=== PATIENT | female | born 1965 | race Caucasian/White ===

== ENCOUNTER 2017-04-21 17:24 | Emergency (ER) | payer MEDICAID, OTHER ==
[~2017-04-21] VITALS: Wt 96.0 kg
--- NOTE | 2017-04-21 18:20 | ERD ---
ER Documentation Chief Complaint Date/Time DATE: 04/21/17 TIME: 18:19 Chief Complaint PT HERE FOR DIALYSIS CATH REMOVAL PER PMD, SEE ATTACHED HPI Patient is a 51-year-old female with dialysis who presents for permacath removal. The patient was sent by her gun striper Dr. Wood to have her permacath removed as she currently has a left upper extremity fistula which is now ready for use for dialysis. She no longer requires the permacath. She has no other complaints. ROS All systems reviewed and are negative except as per history of present illness. PMhx/Soc History of Surgery: Yes (L AV fistula) Anesthesia Reaction: No Hx Neurological Disorder: No Hx Respiratory Disorders: No Hx Cardiac Disorders: No Hx Psychiatric Problems: No Hx Miscellaneous Medical Probl: Yes (HTN, DM, anemia, cholesterol.) Hx Alcohol Use: No Hx Substance Use: No Hx Tobacco Use: No Smoking Status: Never smoker FmHx Family History: No diabetes Physical Exam Vitals Vital Signs Date Time Temp Pulse Resp B/P Pulse Ox O2 Delivery O2 Flow Rate FiO2 04/21/17 17:28 97.9 74 17 159/68 98 Physical Exam Const: No acute distress Head: Atraumatic Eyes: Normal Conjunctiva ENT: Normal External Ears, Nose and Mouth. Neck: Full range of motion..~ No meningismus. Resp: Clear to auscultation bilaterally Cardio: Regular rate and rhythm, no murmurs Abd: Soft, non tender, non distended. Normal bowel sounds Skin: Permacath in the right chest wall, dialysis fistula to the left upper extremity Back: No midline or flank tenderness Ext: No cyanosis, or edema Neur: Awake and alert Psych: Normal Mood and Affect Procedures/MDM Patient is a 51-year-old female presents for permacath removal. The patient unfortunately has come after 5 PM and interventional radiology is no longer here to remove the permacath. I do not remove permacath in the emergency department. The patient will need to return tomorrow morning for permacath removal with interventional radiology. The patient can return for any worsening symptoms. There is no sign of infection at this time. Departure Diagnosis: Primary Impression: Intravenous catheter in place Condition: Fair Patient Instructions: IV Catheter Site Care Referrals: MAXIMINO WOOD MD Additional Instructions: Return tomorrow for Permacath removal by Interventional radiology. MONSE QUIJANO MD Apr 21, 2017 18:20
== END 2017-04-21 18:31 | disposition left against medical advice (07) ==
LOC: E/R 17:24
DX: Z45.2 Encounter for adjustment and management of vascular access device (principal); I10 Essential (primary) hypertension; E11.9 Type 2 diabetes mellitus without complications
CPT/HCPCS: 99282

== ENCOUNTER 2017-04-22 08:35 | Emergency (ER) | payer MEDICAID ==
[~2017-04-22] VITALS: Ht 162.6 cm; Wt 96.5 kg
[2017-04-22 08:40] VITALS: Ht 162.6 cm; Wt 96.5 kg
--- NOTE | 2017-04-22 09:32 | ERD ---
ER Documentation Chief Complaint Date/Time DATE: 04/22/17 TIME: 09:30 Chief Complaint Patient here for a patel catheter removal HPI Patient is here for dialysis catheter removal. The patient was seen yesterday and came to the ER by interventional radiology had already went home. Patient had full dialysis yesterday without complications. Patient has a functioning left upper extremity AV shunt in place it is working and is sent for removal of right subclavian Ed ROS All systems reviewed and are negative except as per history of present illness. Allergies Allergies: Coded Allergies: No Known Allergy (Unverified , 04/22/17) PMhx/Soc History of Surgery: Yes (L AV fistula) Anesthesia Reaction: No Hx Neurological Disorder: No Hx Respiratory Disorders: No Hx Cardiac Disorders: No Hx Psychiatric Problems: No Hx Miscellaneous Medical Probl: Yes (HTN, DM, anemia, cholesterol.) Hx Alcohol Use: No Hx Substance Use: No Hx Tobacco Use: No Smoking Status: Never smoker FmHx Family History: No coronary disease Physical Exam Vitals Vital Signs Date Time Temp Pulse Resp B/P Pulse Ox O2 Delivery O2 Flow Rate FiO2 04/22/17 08:40 98.4 67 20 153/65 96 Physical Exam Const: [] Head: Atraumatic normocephalic Eyes: Normal Conjunctiva, PERRLA ENT: Normal External Ears, Nose and Mouth. Neck: Full range of motion..~ No meningismus. Resp: Clear to auscultation bilaterally, no increased work of breathing Cardio: Regular rate and rhythm, no murmurs, right subclavian Ed intact Abd: Soft, non tender, non distended. Normal bowel sounds Skin: No petechiae or rashes Back: No midline or flank tenderness Ext: No cyanosis, or edema Neur: Awake and alert Psych: Normal Mood and Affect Procedures/MDM Interventional radiology will remove the Ed will discharge home after Departure Diagnosis: Primary Impression: Encounter for removal of vascular catheter Condition: Stable Patient Instructions: DAVE Marks DO Apr 22, 2017 09:32
--- NOTE | 2017-04-22 15:26 | RADRPT ---
PROCEDURE: Right internal jugular vein tunneled hemodialysis catheter removal. CLINICAL INDICATION: Right internal jugular vein tunneled dialysis catheter no longer required. TECHNIQUE: The procedure, risks, benefits, complications and alternatives were explained to the patient. Consen t was obtained. A procedural pause was performed prior to the procedure. The patient's name, date of , and procedure to be performed were verified. The right anterior chest wall was prepped and draped. Fluoroscopic guidance was used. The catheter was nearly completely outside the patient. The catheter was then removed without any anesthetic. Pr essure was applied to the region of the internal jugular vein and the chest wall at the site of the catheter until adequate hemostasis was obtained. A dressing was applied. The patient tolerated proc edure well. 0.1 minutes of fluoroscopy time was used. COMPARISON: None. FINDINGS: Successful removal of tunneled dialysis catheter. Postoperative image demonstrates successful remova l of the dialysis catheter. 1 images of the chest was obtained with image intensifier. IMPRESSION: 1. Successful removal of right internal jugular vein tunneled dialysis catheter. RPTAT: QQ .Alfredo Guillen MD, Date Time Electronically viewed and signed by .Alfredo Guillen MD, on 04/22/2017 15:26 .R/
== END 2017-04-22 12:11 | disposition home or self-care (01) ==
LOC: E/R 08:35
DX: Z45.2 Encounter for adjustment and management of vascular access device (principal); I10 Essential (primary) hypertension; E11.9 Type 2 diabetes mellitus without complications
CPT/HCPCS: 75984; Z7502